=== PATIENT | male | born 1985 | race African-American/Black ===

== ENCOUNTER 2017-08-16 21:13 | Emergency (ER) | payer MEDICAID ==
[~2017-08-16] VITALS: Ht 172.7 cm; Wt 63.5 kg
[2017-08-16 21:19] VITALS: BP 113/56
[2017-08-16] MEDS ORDERED: NKM (21:19)
[2017-08-16] MEDS ORDERED: Ketorolac 30mg Inj IV ONE (21:45)
--- NOTE | 2017-08-16 21:47 | Emergency Room Report ---
History of Present Illness General Chief Complaint: Abdominal Pain Source: Patient Present Illness HPI 32-year-old male with no sig pmhx p/w abdominal pain for 4 hours. Patient states pain started suddenly, localized to mid abdomen and left lower quadrant, non radiating, intermittent. No relieving or exacerbating factors. Pt reports n/v, 5 episodes of nbnb vomiting, no diarrhea or constipation Denies fever, chills. No hx of abdominal surgeries. No hx of endoscopies/colonoscopies. Allergies: Coded Allergies: No Known Allergies (Unverified , 08/16/17) Patient History Past Medical History: see triage record Past Surgical History: none Pertinent Family History: none Reviewed Nursing Documentation: PMH: Agreed, PSxH: Agreed Nursing Documentation-PMH Past Medical History: No Stated History Review of Systems All Other Systems: negative except mentioned in HPI Physical Exam Vital Signs Date Time Temp Pulse Resp B/P (MAP) Pulse Ox O2 Delivery O2 Flow Rate FiO2 08/16/17 21:17 98.1 58 16 113/56 98 Room Air Sp02 EP Interpretation: reviewed, normal General Appearance: alert, GCS 15, non-toxic, moderate distress Head: normocephalic, atraumatic Eyes: bilateral eye normal inspection, bilateral eye PERRL, bilateral eye EOMI ENT: normal ENT inspection, normal pharynx, normal voice, moist mucus membranes Neck: normal inspection, full range of motion, supple Respiratory: normal inspection, lungs clear, normal breath sounds, no respiratory distress, no retraction, no wheezing, speaking full sentences, chest symmetrical Cardiovascular #1: normal inspection, regular rate, rhythm, no edema, normal capillary refill Cardiovascular #2: 2+ radial (R), 2+ radial (L) Gastrointestinal: other - periumbilical tenderness and LLQ tenderness. mild guarding. no rebound Genitourinary: no CVA tenderness Musculoskeletal: normal inspection, back normal, normal range of motion, non- tender Neurologic: normal inspection, alert, oriented x3, responsive, motor strength/ tone normal, sensory intact, normal gait, speech normal Psychiatric: normal inspection, judgement/insight normal, memory normal Skin: normal inspection, normal color, no rash, warm/dry, well hydrated, normal turgor Medical Decision Making Diagnostic Impression: Primary Impression: Abdominal pain ER Course 32-year-old male with abdominal pain Differential Diagnosis: Gastritis, gastroenteritis, cholecystitis, appendicitis, diverticulitis, UTI/ pyelo Plan: Basic labs, ua Zofran, pain control, IVF ER course: Patient has remained stable during ED stay. He has been walking around the emergency room Patient was refusing lab work, states that he only wants pain medication and antibiotics. I gave him motrin. I told patient that I needed to perform blood work because I was concerned with intra-abdominal pathology such as appendicitis or diverticulitis given his exam. He became extremely hostile, yelling at me, disrupting the emergency room. He decided to leave AGAINST MEDICAL ADVICE Disposition: Patient is clinically sober, is free from from distracting injury, and has intact judgement and capacity to decide to leave against medical advice. Patient came in for abdominal pain. I'm concerned for intra-abdominal pathology such as gastritis, gastroenteritis, appendicitis, diverticulitis. Patient verbalized understanding of my concern and my need to do blood work and a CAT scan, but patient states "I just want pain medication and I don't want anyone to take my blood ". I explained to patient the risks of leaving AMA and patient informed that if they leave, they could get worse, ould become become critically ill, possibly become disabled or . Patient verbalized back to me understanding of these risks but still wants to leave. Please note that this Emergency Department Report was dictated using [email or web address] and blending supervisor technology software, occasionally this can lead to erroneous entry secondary to interpretation by the dictation equipment Last Vital Signs Date Time Temp Pulse Resp B/P (MAP) Pulse Ox O2 Delivery O2 Flow Rate FiO2 08/16/17 21:17 98.1 58 16 113/56 98 Room Air Disposition: AGAINST MEDICAL ADVICE Condition: Trey Castro M.D. Aug 16, 2017 21:47
[2017-08-16 22:20] VITALS: BP 123/61
[2017-08-16 22:34] LABS: APPEARANCE,URINE CLEAR; BILIRUBIN, URINE NEGATIVE (NEGATIVE); GLUCOSE, URINE (UA) NEGATIVE (NEGATIVE); KETONES,URINE NEGATIVE (NEGATIVE); LEUKOCYTE ESTERASE ,URINE 1+ (NEGATIVE); NITRITE,URINE NEGATIVE (NEGATIVE); PH,URINE 6 (4.5-8.0); PROTEIN,URINE NEGATIVE (NEGATIVE); UROBILINOGEN,URINE 1 MG/DL (0.0-1.0)
[2017-08-16 22:37] LABS: COLOR,URINE YELLOW
== END 2017-08-16 22:20 | disposition left against medical advice (07) ==
LOC: EMR 22:20
DX: R10.9 Unspecified abdominal pain (principal); Z53.21 Procedure and treatment not carried out due to patient leaving prior to being seen by health care provider
CPT/HCPCS: 81003; 87086; 99283